=== PATIENT | male | born 1980 | race Caucasian/White ===

== ENCOUNTER 2018-05-24 23:25 | Emergency (ER) ==
[2018-05-24 23:31] VITALS: BP 125/76; TEMP 97.9; BMI 21.4
--- NOTE | 2018-05-25 | ED.PDOC ---
General ED Provider: Dr. NEHA HERNANDEZ Chief Complaint: Penile Problem Stated Complaint: reporting an insect bite on the penile shaft resulting in swelling of a soft. tissue in parapreputial location,patient is circumcised, There is no induration,streaking or urethral obstruction,Reporting normal urination and no discharge, Time Seen by Physician: 23:35 Mode of Arrival: Walk-In Information Source: Patient Exam Limitations: No limitations Nursing and Triage Documentation Reviewed and Agree: Yes Does patient meet sepsis criteria?: No System Inflammatory Response Syndrome: Not Applicable Sepsis Protocol: For patient's 13 years and over: Temp is 96.8 and below OR 101 and greater Pulse >90 BPM Resp >20/minute Acutely Altered Mental Status Are patient's symptoms suggestive of a new infection, such as: -Pneumonia -Skin, Soft Tissue -Endocarditis -UTI -Bone, Joint Infection -Implantable Device -Acute Abdominal Infection -Wound Infection -Meningitis -Blood Stream Catheter Infection -Unknown Skin Complaint Exam - Skin/Soft Tissue Complaint/Exam Onset/Duration: 1-2 days Symptoms Are: Still present Timing: Constant Initial Severity: Mild Current Severity: Moderate Location: penile shaft Character: Reports: Redness, Swelling Aggravating: Reports: Touch Alleviating: Reports: None Associated Signs and Symptoms: Reports: Itching, Tenderness Related History: Reports: Insect bite/sting Related Surgical History: Reports: None Recent Exposure to Others w/Similar Symptoms: No Skin Findings: Present: Erythema, Skin lesion, Other Joint Tenderness Present: No Differential Diagnoses: Cellulitis, Infection, MRSA, Tick-Borne Illness Review of Systems - Review Of Systems Constitutional: Reports: No symptoms Eyes: Reports: No symptoms Ears, Nose, Mouth, Throat: Reports: No symptoms Respiratory: Reports: No symptoms Cardiac: Reports: No symptoms GI: Reports: No symptoms : Reports: No symptoms Musculoskeletal: Reports: No symptoms Skin: Reports: No symptoms Neurological: Reports: No symptoms Endocrine: Reports: No symptoms Hematologic/Lymphatic: Reports: No symptoms All Other Systems: Reviewed and Negative Past Medical History - Past Medical History Previously Healthy: Yes Endocrine: Reports: None Cardiovascular: Reports: None Respiratory: Reports: None Hematological: Reports: None Gastrointestinal: Reports: None Genitourinary: Reports: None Neuro/Psych: Reports: None Musculoskeletal: Reports: None Cancer: Reports: None - Surgical History General Surgical History: Reports: None - Family History Family History: Reports: None - Social History Smoking Status: Never smoker Hx Substance Use: No Alcohol Screening: Occasionally - Immunizations Tetanus Shot up to Date: Yes Physical Exam - Physical Exam Appearance: Well-appearing Ill-appearing: None Pain Distress: Mild Eyes: JARAD, EOMI ENT: Ears normal Neck: Supple Respiratory: Airway patent, Breath sounds clear Cardiovascular: RRR GI/: Soft, Nontender Musculoskeletal: Normal strength Skin: Warm, Dry Neurological: Sensation intact Critical Care Note - Critical Care Note Total Time (mins): 0 Course - Course Vital Signs: Temp Pulse Resp BP Pulse Ox 05/24/18 23:26 97.9 F 75 15 125/76 98 Departure - Departure Time of Disposition: 00:55 Disposition: HOME SELF-CARE Discharge Problem: Cellulitis Instructions: Toryck Itch (ED) Condition: Good Pt referred to PMD for follow-up: Yes (Follow with PCP or ER of not better in 48 hours/urine problem.) IPMP verified?: No Additional Instructions: Most probably a reaction to an insecxt bite threatening a regular cellulitis from a skin ateria,Rocephin 1 gm IV and Augmentin 875mg bid course 10 d as prophylaxis and treatment.Also tetanus dose.No yrethrak discharge or a primary lesion,If not better in 48 h return to ed or PCP.Solumedrol IV and PO Benadryl dose, Allergies/Adverse Reactions: Allergies No Known Allergies Allergy (Verified 05/24/18 23:28) Home Medications: Ambulatory Orders 1 [No Reported Medications] 05/24/18 Disposition Discussed With: Patient
[2018-05-25] MEDS ORDERED: ROCEPHIN 1 GM in SODIUM CHLORIDE 50 ML IV STA (00:10)
[2018-05-25] MEDS ORDERED: TENIVAC IM ONE ×2 (00:11→00:28)
[2018-05-25] MEDS ORDERED: ROCEPHIN ONE (00:13)
[2018-05-25] MEDS ORDERED: AUGMENTIN 875-125 MG TAB PO STA (00:14)
[2018-05-25] MEDS ORDERED: SOLU-MEDROL 40 MG IVP STA (00:15)
[2018-05-25] MEDS ORDERED: BENADRYL PO STA (00:16)
== END 2018-05-25 01:15 | disposition home or self-care (01) ==
LOC: ED 23:25
DX: N48.22 Cellulitis of corpus cavernosum and penis (principal)
CPT/HCPCS: 36415; 81001; 85025; 90471; 90714; 96374; 96375; 99283